=== PATIENT | female | born 2000 | race Caucasian/White ===

== ENCOUNTER 2024-12-25 11:00 | Emergency (ER) | payer BC, SELFPAY ==
[2024-12-25 11:02] VITALS: BP 138/57; PULSE 94; RESP 16; TEMP 36.9; O2SAT 99; BMI 43.4
--- NOTE | 2024-12-25 11:20 | EKG12_ITS ---
Test Reason : CP Blood Pressure : */* mmHG Vent. Rate : 121 BPM Atrial Rate : 121 BPM P-R Int : 144 ms QRS Dur : 86 ms QT Int : 308 ms P-R-T Axes : 57 51 14 degrees QTcB Int : 437 ms Sinus tachycardia Nonspecific T wave abnormality Abnormal ECG No previous ECGs available Confirmed by ALVARO VALENTINE, EPYMAN ([id number]), sports editor ALEX ROSALES ([id number]) on 12/29/2024 7:55:53 AM Referred By: COLE Confirmed By: PEYMAN JOHN MD
[2024-12-25 11:21] VITALS: O2SAT 96
--- NOTE | 2024-12-25 11:27 | ED.VIS.CHEST ---
HPI <JEWEL Romero - Last Filed: 12/25/24 14:28> History of Present Illness Chief Complaint: Chest Pain Narrative Narrative: 24-year-old female with past medical history of rheumatoid arthritis, hypothyroidism states she woke up around 8:30 AM and had midsternal chest pressure and felt short of breath. About an hour later she was driving and she started to become very anxious about feeling short of breath and she started to feel lightheaded and like the road was swaying so she pulled over. She came in for evaluation and is accompanied by family friend. She states she has a slight cough today but no fever chills or other upper respiratory symptoms recently. She vapes. She does not have cardiac history or history of DVT/PE or risk factors. Prior Similar Symptoms: No PE Risk Factors: Negative for Recent Travel/Surgery, Recent Immobilization, Prior DVT or PE, Cancer or OCP + Smoking + >/=35 PFSH <JEWEL Romero - Last Filed: 12/25/24 14:28> PFSH Allergy/AdvReac Type Severity Reaction Status Date / Time nitrofurantoin (From Allergy Other Verified 12/25/24 11:01 Macrobid) Social History Smoking Status: Current every day smoker tobacco type: e-cigarettes ROS <JEWEL Romero - Last Filed: 12/25/24 14:28> ROS ED ROS Narrative Constitutional: Negative for fever, chills, malaise. CVS: Positive for chest pain. Negative for palpitations, syncope. Respiratory: Positive for shortness of breath, cough. Negative orthopnea. GI: Negative for abdominal pain, nausea, vomiting. Neuro: Negative for headache, motor/sensory dysfunction. EXAM <JEWEL Romero - Last Filed: 12/25/24 14:28> Physical Exam Narrative Exam Narrative: CONST: Patient sitting in no acute distress. EYES: Normal inspection. ENT: Normal inspection, moist mucous membranes. NECK: Normal inspection. RESP: No respiratory distress, CTAB. CVS: Tachycardic with regular rhythm, no murmur, no gallop. ABD: Soft and nontender, no guarding or rebound, nondistended. SKIN: Color normal, no rash, warm, dry, intact. EXTREMITIES: Normal appearance, no pedal edema. NEURO: Alert and answering questions appropriately. PSYCH: Normal affect. Const Vital Signs: 12/25/24 11:02 12/25/24 11:19 12/25/24 11:21 Temperature 98.4 F Temperature Source Oral Pulse Rate 94 Respiratory Rate 16 Respiratory Effort Normal Non-Labored Blood Pressure 138/57 H Blood Pressure Mean 84 Pulse Ox 99 96 Oxygen Delivery Method Room Air Room Air 12/25/24 12:51 12/25/24 13:01 12/25/24 14:27 Temperature 98.2 F Temperature Source Pulse Rate 104 H 103 H 98 Respiratory Rate 24 H 17 16 Respiratory Effort Blood Pressure 108/50 L 127/70 H 128/74 H Blood Pressure Mean 69 89 92 Pulse Ox 98 100 99 Oxygen Delivery Method Room Air Room Air <Dr. Austen Summers DO - Last Filed: 12/25/24 14:40> Physical Exam Const Vital Signs: 12/25/24 11:02 12/25/24 11:19 12/25/24 11:21 Temperature 98.4 F Temperature Source Oral Pulse Rate 94 Respiratory Rate 16 Respiratory Effort Normal Non-Labored Blood Pressure 138/57 H Blood Pressure Mean 84 Pulse Ox 99 96 Oxygen Delivery Method Room Air Room Air 12/25/24 12:51 12/25/24 13:01 12/25/24 14:27 Temperature 98.2 F Temperature Source Pulse Rate 104 H 103 H 98 Respiratory Rate 24 H 17 16 Respiratory Effort Blood Pressure 108/50 L 127/70 H 128/74 H Blood Pressure Mean 69 89 92 Pulse Ox 98 100 99 Oxygen Delivery Method Room Air Room Air MDM <JEWEL Romero - Last Filed: 12/25/24 14:28> [facility] MDM Narrative Medical decision making narrative: 24-year-old female woke up with chest pressure and shortness of breath. She appears well and nontoxic. During my exam the bedside monitor showed sinus tachycardia in the 120s, otherwise normal vital signs. She has no murmur gallops or rubs. Her exam is otherwise normal. I ordered a cardiac workup plus D-dimer. EKG is sinus tachycardia without ischemic changes and troponin x 2 normal. D-dimer negative. Other than nonspecific leukocytosis of 15.4 her labs are unremarkable. CXR negative. After IV fluids her heart rate has come down to 103. I recommended close follow-up with her primary care doctor and discussed she should return if symptoms worsen. She was comfortable with this plan and discharged in stable condition. Lab Data Attestation: I reviewed the patient's lab results. Labs: Laboratory Results - last 24 hr 12/25/24 12/25/24 11:30 13:35 WBC 15.4 H RBC 4.13 L Hgb 13.2 Hct 38.2 MCV 92.5 MCH 32.0 MCHC 34.6 RDW Std Deviation 41.5 RDW Coeff of Ally 12.2 Plt Count 223 MPV 10.0 Immature Gran % (Auto) 0.500 Neut % (Auto) 86.4 H Lymph % (Auto) 7.0 L [place] % (Auto) 5.6 Eos % (Auto) 0.1 Baso % (Auto) 0.4 Absolute Neuts (auto) 13.3 H Absolute Lymphs (auto) 1.08 Nucleated RBC % 0 D-Dimer Quant (PE/DVT) 0.35 Sodium 138 Potassium 3.5 Chloride 104 Carbon Dioxide 28.0 Anion Gap 6 BUN 10 Creatinine 0.90 Estim Creat Clear Calc 117.47 Est GFR (MDRD) Af Amer 100 Est GFR (MDRD) Non-Af 83 BUN/Creatinine Ratio 11.1 Glucose 103 Calcium 9.8 Troponin I High Sens < 3 L < 3 L Radiography Diagnostic Testing: Clinical Impression(s) from Imaging Studies Chest X-Ray 12/25/24 11:55 IMPRESSION: No radiographic evidence of acute cardiopulmonary disease. Electronically Signed: Samantha Sr MD at 12:57 EST Reading Location ID and State: [address] [place] [address] Tel , Service support , ED attending interpretation of 2 view chest x-ray shows normal heart size, no acute infiltrate edema or effusion. EKG Initial EKG: Attestation: I personally reviewed and interpreted this EKG as follows: Interpretation: No Acute Injury Pattern and Sinus Tachycardia Comments: Sinus tachycardia at 121 bpm Normal intervals Nonspecific T wave abnormality <Dr. Austen Summers, DO - Last Filed: 12/25/24 14:40> [facility] Lab Data Labs: Laboratory Results - last 24 hr 12/25/24 12/25/24 11:30 13:35 WBC 15.4 H RBC 4.13 L Hgb 13.2 Hct 38.2 MCV 92.5 MCH 32.0 MCHC 34.6 RDW Std Deviation 41.5 RDW Coeff of Ally 12.2 Plt Count 223 MPV 10.0 Immature Gran % (Auto) 0.500 Neut % (Auto) 86.4 H Lymph % (Auto) 7.0 L [place] % (Auto) 5.6 Eos % (Auto) 0.1 Baso % (Auto) 0.4 Absolute Neuts (auto) 13.3 H Absolute Lymphs (auto) 1.08 Nucleated RBC % 0 D-Dimer Quant (PE/DVT) 0.35 Sodium 138 Potassium 3.5 Chloride 104 Carbon Dioxide 28.0 Anion Gap 6 BUN 10 Creatinine 0.90 Estim Creat Clear Calc 117.47 Est GFR (MDRD) Af Amer 100 Est GFR (MDRD) Non-Af 83 BUN/Creatinine Ratio 11.1 Glucose 103 Calcium 9.8 Troponin I High Sens < 3 L < 3 L Radiography Diagnostic Testing: Clinical Impression(s) from Imaging Studies Chest X-Ray 12/25/24 11:55 IMPRESSION: No radiographic evidence of acute cardiopulmonary disease. Electronically Signed: Samantha Sr MD at 12:57 EST , Treatment and Re-Evaluation :: I have personally performed a face to face assessment of the patient and have reviewed the CARLOS Note. I performed a substantive portion of the visit including all aspects of the following. My kimball findings include: History: Patient presents with chest pain that began today. Patient states she noticed it when she woke up this morning. Patient states it waxes and wanes. Patient describes it as a pressure. Patient states it is worse over the right side of her chest. Patient states nothing makes it better nothing makes it worse. Patient admits to some shortness of breath and cough. Patient admits to some lightheadedness and palpitations. Patient denies any fevers or chills. Exam: Vital signs are stable. Patient is afebrile. Patient is in no acute distress. Oral mucosa is pink and moist. Neck is supple. Trachea is midline. There is no JVD. Heart was regular rate and rhythm. Lungs are clear and equal bilaterally. Abdomen is soft. Bowel sounds are normal. There is no tenderness. Cranial nerves II through XII are intact. There are no focal motor or sensory deficits noted. Medical Decision Making: Differential diagnosis includes musculoskeletal pain, anxiety, cardiac dysrhythmia, cardiac ischemia, electrolyte abnormality, dehydration, pneumonia. EKG will be obtained to assess for cardiac dysrhythmia and cardiac ischemia. Chest x-ray will be obtained to assess for pneumonia and pneumothorax. CBC will be obtained to assess for leukocytosis and anemia. Basic metabolic profile will be obtained to assess for electrolyte abnormality and renal function. High-sensitivity troponin will be obtained to assess for cardiac ischemia. D-dimer will be obtained to assess for pulmonary embolism. 2-hour repeat high-sensitivity troponin will be obtained to assess for ongoing cardiac ischemia. Patient was given aspirin. Patient was given IV fluids. CBC was reviewed. There is a leukocytosis of 15.4. The remainder is within normal limits. Basic metabolic profile was reviewed and was within normal limits. Initial high-sensitivity troponin was reviewed and was less than 3. D-dimer was reviewed and was normal at 0.35. PA and lateral chest x-ray was obtained. There are 2 views. On my independent interpretation, lung lee are clear. There is normal cardiac silhouette. Bony thorax is normal. There is no acute process noted. Radiologist also interpreted the x-ray and agrees. 2-hour repeat high-sensitivity troponin was reviewed and was also less than 3. Patient was instructed to drink plenty of fluids. Patient was instructed to take Tylenol or ibuprofen as needed for any pain. Patient was instructed to follow-up with her primary care physician in 5 to 7 days. Patient understood and is agreeable with the plan. All questions were answered. Discharge Plan Triage Chief Complaint: Chest Pain ED Midlevel Provider: Silvana Dooley ED Provider: Austen Summers Dx/Rx/DC Orders Clinical Impression: Atypical chest pain, Dyspnea Instructions: ED Chest Pain, Uncertain Cause Primary Care Provider: Karla Reis,Out of Referrals: Karla Reis,Out of [Primary Care Provider] - Activity Restrictions/Additional Instructions: Your screening tests are normal. There are no signs of heart attack or blood clots or life-threatening abnormalities. I recommend you follow-up with your primary care doctor. If symptoms significantly change or worsen come back to the ER. Print Language: Citizen [place] Disposition Disposition: Home, Self Care Discharge Date/Time: 12/25/24 14:28
[2024-12-25] MEDS: Aspirin 81 MG TAB.CHEW 324 MG PO (11:37)
[2024-12-25] MEDS: 0.9% Normal Saline (1000mL) 1,000 ML 999 ML IV (11:37)
[2024-12-25 11:41] LABS: Absolute Lymphocyte Count 1.08 X10^3/uL (0.83-4.51); Absolute Neutrophil Count 13.3 X10^3/uL (2.0-7.7); Basophil# 0.06 X10^3/uL; Basophil% 0.4 % (0-1); Eosinophil# 0.01 X10^3/uL; Eosinophils% 0.1 % (0-5); Hematocrit 38.2 % (37-47); Hemoglobin 13.2 g/dL (12.0-15.0); Lymphocyte # 1.08 X10^3/ul (0.83-4.51); Mean Corp Hgb Conc 34.6 g/dL (32-36); Mean Corpuscular Volume 92.5 fL (81-99); Monocyte# 0.86 X10^3/uL; Monocyte% 5.6 % (0-10); NRBC Flagged by Analyzer 0 % (0-5); Neutrophil # 13.34 X10^3/uL (2.7-7.7); Neutrophil % 86.4 % (47-70); Platelet Count 223 K/mm3 (150-450); RBC Distribution Width CV 12.2 % (11.6-14.6); RBC Distribution Width SD 41.5 fl (35.1-43.9); Red Blood Count 4.13 M/mm3 (4.2-5.4); White Blood Count 15.4 K/mm3 (4.4-11.0)
[2024-12-25 11:51] LABS: D-Dimer Quantitative (DVT/PE) 0.35 FEU/ug/m (0.27-0.49)
--- NOTE | 2024-12-25 11:55 | RAD_ITS ---
INDICATION: chest pain EXAMINATION/TECHNIQUE: X-RAY - XR Chest 2 Views COMPARISON: No relevant prior comparison study available FINDINGS: LINES/DEVICES: None. LUNGS: There are low lung volumes. No consolidation, edema or effusion. No pneumothorax. MEDIASTINUM AND CARDIOVASCULAR STRUCTURES: Cardiac silhouette not enlarged. Central airways and mediastinal contour are unremarkable. BONES AND SOFT TISSUES: Unremarkable. RAD/Chest PA and Lateral IMPRESSION: No radiographic evidence of acute cardiopulmonary disease. Electronically Signed: Samantha Sr MD at 12:57 EST ,
[2024-12-25 12:03] LABS: Anion Gap 6 (5-15); BUN 10 mg/dL (7-18); BUN/Creat Ratio 11.1 RATIO (10-20); Calcium,Total 9.8 mg/dL (8.5-10.1); Chloride 104 mmol/L (98-107); EST Glomerular Filtration Rate 83 mL/min (>60); Est Glom Filt Rate - Afr Amer 100 mL/min (>60); Estimated Creatinine Clearance 117.47 ml/min; Glucose 103 mg/dL (74-106); Potassium 3.5 mmol/L (3.5-5.1); Sodium Level 138 mmol/L (136-145); Troponin-I HS (w/2H Reflex) < 3 pg/mL (3.0-54.0)
[2024-12-25 12:51] VITALS: BP 108/50; PULSE 104; RESP 24; O2SAT 98
[2024-12-25 13:01] VITALS: BP 127/70; PULSE 103; RESP 17; O2SAT 100
[2024-12-25 13:37] LABS: Reflex Troponin-HS? (from REC) Y
[2024-12-25 14:01] LABS: Troponin-I HS < 3 pg/mL (3.0-54.0)
[2024-12-25 14:27] VITALS: BP 128/74; PULSE 98; RESP 16; TEMP 36.8; O2SAT 99
== END 2024-12-25 14:28 | disposition home or self-care (01) ==
PROVIDERS: Physician Assistant; Emergency Provider Emergency Medicine; Visit Provider Emergency Medicine
DX: R07.89 Other chest pain (principal); R06.00 Dyspnea, unspecified; F17.290 Nicotine dependence, other tobacco product, uncomplicated
CPT/HCPCS: 71046; 80048; 84484; 85025; 85379; 93005; 96360; 96361; 99285; A4216